=== PATIENT | female | born 1980 | race Caucasian/White ===

== ENCOUNTER 2017-10-26 08:37 | Emergency (ER) | payer BC ==
[2017-10-26] MEDS: traMADol 50 MG TABLET PO (10:07)
[2017-10-26 10:52] LABS: URINE HCG POC HCG NEGATIVE (Negative)
== END 2017-10-26 11:48 | disposition home or self-care (01) ==
LOC: ER 08:37
DX: M25.551 Pain in right hip (principal); M51.36 Other intervertebral disc degeneration, lumbar region; E11.9 Type 2 diabetes mellitus without complications
CPT/HCPCS: 73502; 81025; 99284